=== PATIENT | female | born 1975 | race American Indian/Alaskan Native ===

== ENCOUNTER 2020-07-21 23:18 | Emergency (ER) | payer BC ==
[2020-07-22 00:16] VITALS: BP 122/78
[2020-07-22 00:52] LABS: Basophils % (Auto) 0.3 % (0.0-1.8); Eosinophils # (Auto) 0.1 K/mm3 (0.0-0.4); Hematocrit 38.2 % (30.3-42.9); Hemoglobin 13.2 gm/dl (10.1-14.3); Lymphocytes # (Auto) 2.5 K/mm3 (1.2-5.4); Mean Corpuscular HGB Conc 35 % (30-34); Mean Corpuscular Volume 94 fl (79-97); Monocytes # (Auto) 0.6 K/mm3 (0.0-0.8); Monocytes % (Auto) 7.1 % (0.0-7.3); Platelet Count 338 K/mm3 (140-440); Red Blood Count 4.07 M/mm3 (3.65-5.03); Red Cell Distribution Width 13.3 % (13.2-15.2)
[2020-07-22 01:17] LABS: Alanine Aminotransferase 17 units/L (7-56); Albumin 4.2 g/dL (3.9-5); BUN/Creatinine Ratio 13; Blood Urea Nitrogen 10 mg/dL (7-17); Calcium 8.8 mg/dL (8.4-10.2); Hemolysis Index 5
--- NOTE | 2020-07-22 01:40 | XRay Report ---
CHEST PA AND LATERAL VIEWS INDICATION: chest pain. COMPARISON: None. FINDINGS: Support devices: None. Heart: Within normal limits. Lungs/Pleura: No acute pulmonary or pleural findings. IMPRESSION: 1. No acute findings. Signer Name: Henok Bravo MD Signed: 07/22/2020 1:35 AM Workstation Name: [id number]
--- NOTE | 2020-07-23 11:34 | Electrocardiograph Report ---
[facility] Test Date: 2020-07-22 Test Time: 00:20:45 Pat Name: MICHELLE FERRIS Department: Room: Gender: F Chief Concierge: MARK : 1975 Requested By: BLADIMIR HINES Order Number: [id number] Reading MD: Macie Muller Measurements Intervals [place] Rate: 56 P: 66 MO: 197 QRS: 53 QRSD: 88 T: 64 QT: 400 QTc: 387 Interpretive Statements Sinus bradycardia No previous ECG available for comparison Electronically Signed On 07-23-2020 11:34:30 EDT by Macie Muller
== END 2020-07-22 07:54 | disposition left against medical advice (07) ==
LOC: ED 23:18
DX: R07.89 Other chest pain (principal); Z53.21 Procedure and treatment not carried out due to patient leaving prior to being seen by health care provider
CPT/HCPCS: 36415; 71046; 80053; 84484; 84703; 85025; 93005